=== PATIENT | female | born 1950 | race Caucasian/White ===

== ENCOUNTER 2018-10-10 12:29 | Outpatient (CLI) | payer MEDICARE, BC, OTHER ==
[~2018-10-10 12:29] MED LIST: ASPI81TA30 PO; ATEN-170 PO; CHOL100046 PO; CIME300T PO; ESTR1PAT30 PO; LOSA50TA3 PO; NITR100C6 PO; OMEP40CA37 PO; SIMV20TA PO
== END 2018-10-10 23:59 | disposition home or self-care (01) ==
LOC: VAS 12:29
PROVIDERS: ATTEND Surgery
DX: I70.213 Atherosclerosis of native arteries of extremities with intermittent claudication, bilateral legs (principal); R60.0 Localized edema; I12.9 Hypertensive chronic kidney disease with stage 1 through stage 4 chronic kidney disease, or unspecified chronic kidney disease; N18.3 Chronic kidney disease, stage 3 (moderate); J45.909 Unspecified asthma, uncomplicated; Z90.710 Acquired absence of both cervix and uterus; Z79.82 Long term (current) use of aspirin; Z79.899 Other long term (current) drug therapy
CPT/HCPCS: 93922; 93925; 93970

== ENCOUNTER → 2019-05-20 | Day surgery (SDC) | payer MEDICARE, BC, OTHER ==
[2019-05-20] VITALS (9 sets, daily range): BP systolic 89–153; BP diastolic 36–63
[~2019-05-20] VITALS: Ht 152.4 cm; Wt 70.2 kg
[~2019-05-20] MED LIST changes: +ANTI-DIARRHEAL; +LIDOcaine 1%/PF 5ML 10 MG/ML VIAL ONE; +OMEP40CA13 PO; -OMEP40CA37 PO; +PANT20TA3 PO; +diphenhydrAMINE 50 mg/ml inj ONE; +fentaNYL/PF 50MCG/1 ML 2ML syringe IV PRN; +fentaNYL/PF 50MCG/1 ML 2ML syringe ONE; +heparin 1,000 UNITS/NS 500ml 500 ML ONE; +heparin 1,000unit/ml 10ml vial 10 ML ONE; +iohexol 300mg/ml 100ml inj. ONE; +midazolam 2 mg/2 ml injection IV PRN; +midazolam 2 mg/2 ml injection ONE; +normal saline 1000ml 1,000 ML IV SCH
--- NOTE | 2019-05-20 07:30 | NUR ---
PT NS IV FLUID STARTED AT 0730.
[2019-05-20 08:03] LABS: BASOPHILS % (AUTO) 0.6 % (0-1); EOSINOPHILS % (AUTO) 0.4 % (0-6); HEMOGLOBIN 12.6 g/dl (12.0-16.0); LYMPHOCYTES # (AUTO) 2.2 X10'3 (1.1-4.8); LYMPHOCYTES % (AUTO) 25.9 % (21-51); MEAN CORPUSCULAR HEMOGLOBIN 31.7 PG (27.0-31.0); MEAN CORPUSCULAR HGB CONC 34.1 g/dL (33.0-36.5); MEAN CORPUSCULAR VOLUME 92.9 FL (78-98); MEAN PLATELET VOLUME 10.3 FL (7.4-10.4); MONOCYTES # (AUTO) 0.8 X10'3 (0-0.9); MONOCYTES % (AUTO) 9.2 % (2-12); NEUTROPHILS # (AUTO) 5.5 X10'3 (1.8-7.7); NEUTROPHILS % (AUTO) 63.9 % (42-75); PLATELET COUNT 174 X10'3 (140-440); RED BLOOD COUNT 3.98 X10'6 (4.20-5.60); RED CELL DISTRIBUTION WIDTH 14.4 % (11.5-14.5); WHITE BLOOD COUNT 8.6 X10'3 (4.5-11.0)
[2019-05-20 08:07] LABS: ALBUMIN 3.5 G/DL (3.4-5.0); ANION GAP 7 (8-16); BLOOD UREA NITROGEN 17 MG/DL (7-18); BUN/CREATININE RATIO 9.1 (6.6-38.0); CALCIUM 8.9 MG/DL (8.5-10.1); CHLORIDE 108 MMOL/L (99-107); CREATININE 1.87 MG/DL (0.40-0.90); GLUCOSE 92 MG/DL (70-104); POTASSIUM 4.1 MMOL/L (3.5-5.1); SODIUM 143 MMOL/L (135-145); TOTAL CARBON DIOXIDE 27.6 MMOL/L (24-32); eGFR 27 ML/MIN
== END | disposition home or self-care (01) ==
LOC: SSTAY O 06:32
PROVIDERS: ATTEND Radiology Vascular & Interventional Radiology
DX: E13.51 Other specified diabetes mellitus with diabetic peripheral angiopathy without gangrene (principal); J45.909 Unspecified asthma, uncomplicated; Z90.49 Acquired absence of other specified parts of digestive tract; Z98.890 Other specified postprocedural states; Z88.8 Allergy status to other drugs, medicaments and biological substances; Z79.899 Other long term (current) drug therapy; Z79.82 Long term (current) use of aspirin
CPT/HCPCS: 36246; 36415; 75625; 75710; 80048; 85025; 85610; C1760; C1769; C1894; J1200; J1644; J2250; J3010; J7030; Q9967; 36160; 36245; 76937; 99152; 99153; A6213; G0269

== ENCOUNTER 2023-02-25 09:46 | Inpatient (IN) | payer MEDICARE, BC, OTHER ==
[~2023-02-25] VITALS: Ht 152.4 cm; Wt 56.8 kg
[~2023-02-25 09:46] MED LIST changes: -LIDOcaine 1%/PF 5ML 10 MG/ML VIAL ONE; +LOSA-416 PO; -LOSA50TA3 PO; -OMEP40CA13 PO; +PANT20TA18 PO; -PANT20TA3 PO; +SIMV-342 PO; -SIMV20TA PO; -diphenhydrAMINE 50 mg/ml inj ONE; -fentaNYL/PF 50MCG/1 ML 2ML syringe IV PRN; -fentaNYL/PF 50MCG/1 ML 2ML syringe ONE; -heparin 1,000 UNITS/NS 500ml 500 ML ONE; -heparin 1,000unit/ml 10ml vial 10 ML ONE; -iohexol 300mg/ml 100ml inj. ONE; -midazolam 2 mg/2 ml injection IV PRN; -midazolam 2 mg/2 ml injection ONE; -normal saline 1000ml 1,000 ML IV SCH
[2023-02-25] MEDS ORDERED: normal saline 1000ML IV soln IV ONE (11:25)
[2023-02-25] MEDS ORDERED: CefTRIAXone/D5W-Rocephin 1gm 50 ML IV ONE (11:25)
[2023-02-25] MEDS ORDERED: ondansetron/PF 4mg/2ml inj IV ONE (11:25)
[2023-02-25 11:32] LABS: BASOPHILS % (AUTO) 0.3 % (0-1); EOSINOPHILS % (AUTO) 0 % (0-6); HEMATOCRIT 35.3 % (35.0-45.0); HEMOGLOBIN 11.8 g/dl (12.0-16.0); LYMPHOCYTES # (AUTO) 0.3 X10'3 (1.1-4.8); LYMPHOCYTES % (AUTO) 2.2 % (21-51); MEAN CORPUSCULAR HEMOGLOBIN 30.2 PG (27.0-31.0); MEAN CORPUSCULAR HGB CONC 33.5 g/dL (33.0-36.5); MEAN CORPUSCULAR VOLUME 90.1 FL (78-98); MEAN PLATELET VOLUME 10.9 FL (7.4-10.4); MONOCYTES # (AUTO) 0.8 X10'3 (0-0.9); NEUTROPHILS # (AUTO) 14.3 X10'3 (1.8-7.7); NEUTROPHILS % (AUTO) 92.5 % (42-75); PLATELET COUNT 253 X10'3 (140-440); RED BLOOD COUNT 3.91 X10'6 (4.20-5.60); RED CELL DISTRIBUTION WIDTH 14.9 % (11.5-14.5); WHITE BLOOD COUNT 15.5 X10'3 (4.5-11.0)
[2023-02-25 11:46] LABS: ALANINE AMINOTRANSFERASE 60 U/L (12-78); ALBUMIN 2.5 G/DL (3.4-5.0); ALBUMIN/GLOBULIN RATIO 0.6 (1.1-1.5); ALKALINE PHOSPHATASE 94 IU/L (46-116); ANION GAP 10 (8-16); ASPARTATE AMINO TRANSFERASE 60 U/L (10-37); BILIRUBIN,TOTAL 0.2 MG/DL (0.1-1.0); BLOOD UREA NITROGEN 64 MG/DL (7-18); BUN/CREATININE RATIO 31.1 (10.0-20.0); CALCIUM 8.8 MG/DL (8.5-10.1); CHLORIDE 106 MMOL/L (99-107); CREATININE 2.06 MG/DL (0.40-0.90); GLUCOSE 258 MG/DL (70-104); POTASSIUM 3.5 MMOL/L (3.5-5.1); SODIUM 141 MMOL/L (135-145); TOTAL CARBON DIOXIDE 25.5 MMOL/L (24-32); eGFR 24 ML/MIN
--- NOTE | 2023-02-25 11:51 | NUR ---
PT TROP 71. RN NOTIFIED PROVIDER MARIAH CURRIE AND TELMA LOZA.
[2023-02-25 12:08] LABS: CLARITY,URINE SLIGHTLY CLOUDY (Clear); COLOR,URINE YELLOW (Yellow); GLUCOSE, URINE 100 mg/dl (Neg); KETONES,URINE NEGATIVE (Neg); LEUKOCYTE ESTERASE ,URINE NEGATIVE (Neg); NITRITES, URINE NEGATIVE (Neg); OCCULT BLOOD,URINE MODERATE (Neg); PROTEIN,URINE >=300 mg/dl (Neg); UROBILINOGEN,URINE 0.2 E.U/dL (0.2-1.0)
[2023-02-25] MEDS ORDERED: cloNIDine 0.1 mg tablet PO ONE (12:10)
[2023-02-25 12:11] LABS: UA COLLECTION TYPE FOLEY CATH
[2023-02-25 12:12] LABS: MUCUS STRANDS FEW /LPF (Neg); SQUAMOUS EPITHELIAL CELL,UR FEW /LPF (FEW); WBC,URINE 0-4 /HPF (0-4)
[2023-02-25 12:13] LABS: AMORPHOUS URATES 1+; BACTERIA,URINE NONE SEEN /HPF (Neg)
[2023-02-25] MEDS ORDERED: losartan 50mg tablet PO STA (13:22)
[2023-02-25] MEDS ORDERED: amLODIPine 5mg tablet PO ONE ×2 (13:25→23:40)
[2023-02-25 13:32] LABS: ABG BASE EXCESS -3.1 mmol/L (-2.0-2.0); ABG HCO3 20.3 mmol/L (22.0-26.0); ABG OXYGEN SATURATION 88.8 % (94-97); ABG PCO2 (T) 31.1 mmHg (32.0-45.0); ABG PO2 (T) 57.9 mmHg (75.0-100.0); ALLEN'S TEST POSITIVE; FCOHb 0.2 % (0.0-3.9); FMetHb 0.3 % (0.0-1.5); FO2Hb 88.4 % (94-97); TOTAL HEMOGLOBIN 12.1 G/dl (12.0-16.0)
[2023-02-25] MEDS ORDERED: piperacillin/tazo 3.375gm/50ml 50 ML IV ONE (13:35)
--- NOTE | 2023-02-25 14:53 | NUR ---
LAB REPORTED TROPONIN 91. RN NOTIFIED WAN LOZA AND SHE WILL NOTIFY PROVIDER.
[2023-02-25] MEDS ORDERED: magnesium Cl slow-release 64mg tablet PO PRN (15:00)
[2023-02-25] MEDS ORDERED: mag hydrox/Alum hydrox/simeth 30ml oral suspension PO PRN (15:00)
[2023-02-25] MEDS ORDERED: acetaminophen 650mg rectal suppository RC PRN (15:00)
[2023-02-25] MEDS ORDERED: potassium Cl 20 mEq SR tablet PO PRN ×2 (15:00)
[2023-02-25] MEDS ORDERED: ondansetron/PF 4mg/2ml inj IV PRN (15:00)
[2023-02-25] MEDS ORDERED: diphenhydrAMINE 25mg capsule PO PRN (15:00)
[2023-02-25] MEDS ORDERED: bisacodyl 10mg suppository rectal RC PRN (15:00)
[2023-02-25] MEDS ORDERED: PERFLUTREN PROTEIN-A MICROSPHR (Optison) 0.22 MG/ML 3ML VIAL IV ONE (15:00)
[2023-02-25] MEDS ORDERED: potassium Cl 40MEQ/1/2NS 520ml 520 ML IV PRN (15:00)
[2023-02-25] MEDS ORDERED: acetaminophen 325mg tablet PO PRN ×2 (15:00)
[2023-02-25] MEDS ORDERED: magnesium hydroxide 30ml (MOM) UD suspension PO PRN (15:00)
[2023-02-25] MEDS ORDERED: magnesium 4gm in 100ml NS 100 ML IV PRN (15:00)
[2023-02-25] MEDS ORDERED: magnesium 2GM in 50ml NS 50 ML IV PRN (15:00)
[2023-02-25 15:26] LABS: D-DIMER 5.93 MG/L FEU (0-0.50); HEMOGLOBIN A1C 6.6 % (4.5-6.2)
[2023-02-25] MEDS ORDERED: vancomycin/NS 1 GM ADD-VANTAGE 250 ML IV PRN (15:35)
[2023-02-25] MEDS ORDERED: vancomycin/NS 1 GM ADD-VANTAGE 250 ML IV ONE (15:35)
[2023-02-25 16:00] VITALS: BP 207/65
--- NOTE | 2023-02-25 16:00 | NUR ---
Patient in room PCU 3024. I have received report from Delaney LOZA and had the opportunity to ask questions and assume patient care. Pt arrived via gurney. Pt is confused. Pt oriented to self. Pt knows she is in a hospital. Per endorsement, pt has been confused x 5 days. Pt lives alone. Pt breathing even and unlabored on continuous O2 @ 4lpm. Pt unable to provide hx. Pt v/s BP 207/65 HR 106 RR 16 SPO2 94% on 4LPM, FLACC 0/10. Pt has a field start PIV to right dorsal hand. Telebox started. RN will follow up with PRN Hydralazine. Addendum: 02/25/23 at 1703 by Reggie MYERSN Amended: Links added.
[2023-02-25] MEDS: hydrALAZINE 20mg/ml inj. IV PRN ×2 (16:21→22:46)
[2023-02-25] MEDS: normal saline 1000ml 1,000 ML IV SCH (16:30)
[2023-02-25] MEDS: piperacillin/tazo 3.375gm/50ml 50 ML IV SCH (16:46)
[2023-02-25] MEDS ORDERED: LEVO75TA7 PO (17:10)
[2023-02-25] MEDS ORDERED: CLON0.2T PO (17:10)
[2023-02-25] MEDS ORDERED: ATOR-2 PO (17:10)
[2023-02-25] MEDS ORDERED: OMEP20CA16 PO (17:10)
[2023-02-25] MEDS ORDERED: LOSA100T58 PO (17:10)
[2023-02-25] MEDS ORDERED: DAPA5TAB PO (17:10)
[2023-02-25] MEDS ORDERED: SIME125T62 PO (17:10)
[2023-02-25] MEDS ORDERED: ALBU18HF2 PO (17:10)
[2023-02-25] MEDS ORDERED: ESTR1TAB28 PO (17:10)
[2023-02-25] MEDS ORDERED: OMEP40CA21 PO (17:10)
[2023-02-25] MEDS ORDERED: AMLO5TAB16 PO (17:10)
[2023-02-25] MEDS ORDERED: ERGO500093 PO (17:10)
[2023-02-25] MEDS ORDERED: DIPH1TAB29 PO (17:10)
--- NOTE | 2023-02-25 17:40 | NUR ---
Paged. Page Accepted Message: [id number] Burns. Most recent troponin 100 @ 5816. Today's troponin readings are 71-88-9. Reggie Domínguez LVN Transaction number: [id number]
[2023-02-25] MEDS ORDERED: heparin 10,000 units/1 ML INJ IV ONE (17:45)
--- NOTE | 2023-02-25 17:58 | NUR ---
Pt had multiple episodes of low blood pressure. Pt received 2 x 500 bolus of Normal Saline. Total NS administered = 1000ml. Pt tolerated IVF well. No maintenance IVF. MD adjusted medications. Pt refused lunch. Pt BGM 102-98-102. Pt consumed 600ml out of 1500ml fluid restriction. Pt is incontinent of urine. Addendum: 02/25/23 at 1802 by Reggie Roman LVN, LVN wrong pt.
[2023-02-25 18:00] VITALS: BP 129/66
[2023-02-25] MEDS ORDERED: simethicone 125mg capsule PO PRN (18:05)
[2023-02-25] MEDS ORDERED: albuterol 2.5 MG/3 ML nebule NEB PRN (18:05)
[2023-02-25] MEDS ORDERED: diphenoxylate/atropine tablet (Lomotil) PO PRN (18:05)
[2023-02-25] MEDS ORDERED: dextrose 50%-water 50ml dispensing syringe IV PRN ×2 (18:10)
[2023-02-25] MEDS ORDERED: MESSAGE TO PHARMACY PO ONE (18:10)
[2023-02-25] MEDS ORDERED: glucagon, human recombinant 1mg kit SUBCUT PRN (18:10)
[2023-02-25] MEDS ORDERED: DEXTROSE 15 GM of carb/4 tabs (each vial/BOTTLE has 4 tablets) PO PRN ×2 (18:10)
--- NOTE | 2023-02-25 18:30 | NUR ---
Patient in room PCU 3024. I have received report from Reggie YOUNG and had the opportunity to ask questions and assume patient care.
--- NOTE | 2023-02-25 18:36 | NUR ---
Problems reprioritized. Patient report given, questions answered & plan of care reviewed with Priscilla LOZA.
--- NOTE | 2023-02-25 18:45 | NUR ---
Patient in room PCU 3024. I have received report from SADIA LOZA and had the opportunity to ask questions and assume patient care.
--- NOTE | 2023-02-25 18:47 | NUR ---
Patient in room PCU 3024. I have received report from KALIN YOUNG and had the opportunity to ask questions and assume patient care.
[2023-02-25 19:50] VITALS: BP 185/61
[2023-02-25] MEDS: K and/or MAG REPLACEMENT MC SCH (20:00)
[2023-02-25] MEDS: heparin, porcine 5000 units/ml vial SQ SCH (20:00)
[2023-02-25 20:08] LABS: APTT 26 SECONDS (22-32)
[2023-02-25] MEDS: heparin 25,000 UNIT/250ml bag 250 ML IV PRN (20:32)
--- NOTE | 2023-02-25 20:45 | NUR ---
PAGED DR. MANDEL AND CALLED BACK WAS INFORMED OF CRITICAL TROPONIN OF 97 WHICH IS DOWN FROM PREVIOUS RESULT OF 100 NO NEW ORDERS MADE SAID TO CONTINUE HEPARIN DRIP ORDERED.
[2023-02-25 21:00] VITALS: BP 135/76
[2023-02-25] MEDS: docusate sod 100mg capsule PO SCH (21:52)
[2023-02-25] MEDS: lactobacillus rhamnosus 10,000 MMU CELLS/CAPSULE PO SCH (21:52)
[2023-02-25] MEDS: pantoprazole 40mg Tablet.DR PO SCH (21:53)
[2023-02-25] MEDS: cloNIDine 0.1 mg tablet PO SCH (21:58)
[2023-02-25 22:00] VITALS: BP 187/73
[2023-02-25] MEDS: insulin glargine (Lantus) pen - multi-dose SQ SCH (22:32)
--- NOTE | 2023-02-25 23:30 | NUR ---
PAGED DR. MANDEL AND CALLED BACK WAS INFORMED ABOUT PATIENT'S HIGH BLOOD PRESSURE OF 183/79 EVEN AFTER HYDRALAZINE AND HR UP TO 140'S WITH ORDER WITH ORDER TO GIVE LABETALOL AND AMLODIPINE.
[2023-02-25] MEDS ORDERED: labetalol 100mg tablet PO SCH (23:40)
[2023-02-26] VITALS (19 sets, daily range): BP systolic 105–173; BP diastolic 57–76
[2023-02-26] MEDS: piperacillin/tazo 3.375gm/50ml 50 ML IV SCH ×3 (00:28→16:22)
[2023-02-26] MEDS: normal saline 1000ml 1,000 ML IV SCH ×2 (01:00→11:00)
--- NOTE | 2023-02-26 02:00 | NUR ---
Patient in room PCU 3024. I have received report from Bharati LOZA and had the opportunity to ask questions and assume patient care.
--- NOTE | 2023-02-26 02:05 | NUR ---
PAGEHien MANDEL AND WAS INFORMED OF PATIENT'S HEART RATE UP TO 160'S TO 170'S BUT BLOOD PRESSURE IS DOWN TO 113/62 WITH ORDER TO START WITH AMIODARONE DRIP.
[2023-02-26] MEDS ORDERED: amiodarone 150mg/dext, iso-os 100 ML IV ONE (02:25)
[2023-02-26] MEDS: VANCOMYCIN LEVEL IV SCH (02:30)
--- NOTE | 2023-02-26 02:30 | NUR ---
TOOK CHARGE OF THE PT SHE WAS TACHY @>160 AND NEEDED AMEO DRIP. STARTED AMIODARONE DRIP PER PROTOCOL. WILL CONTINUE MONITORING
--- NOTE | 2023-02-26 02:45 | NUR ---
PATIENT CARE TRANSFER TO A TELE NURSE, PATIENT REPORT GIVEN QUESTIONS ANSWERED AND PLAN OF CARE REVIEWED WITH NETTE LOZA.
[2023-02-26] MEDS: amiodarone/D5 360MG/200ML BAG 200 ML IV SCH ×6 (03:45→21:23)
[2023-02-26 03:49] LABS: ALANINE AMINOTRANSFERASE 44 U/L (12-78); ALBUMIN 1.9 G/DL (3.4-5.0); ALBUMIN/GLOBULIN RATIO 0.5 (1.1-1.5); ALKALINE PHOSPHATASE 53 IU/L (46-116); ANION GAP 10 (8-16); ASPARTATE AMINO TRANSFERASE 44 U/L (10-37); BILIRUBIN,TOTAL 0.3 MG/DL (0.1-1.0); BLOOD UREA NITROGEN 71 MG/DL (7-18); BUN/CREATININE RATIO 30.5 (10.0-20.0); CALCIUM 8.2 MG/DL (8.5-10.1); CHLORIDE 113 MMOL/L (99-107); CHOL/HDL RATIO 10.3 (0.00-4.99); CHOLESTEROL 134 MG/DL (0-200); CREATININE 2.33 MG/DL (0.40-0.90); GLUCOSE 258 MG/DL (70-104); HDL CHOLESTEROL 13 MG/DL (35-60); LDL CHOLESTEROL 64 MG/DL (50-100); POTASSIUM 3.4 MMOL/L (3.5-5.1); SODIUM 146 MMOL/L (135-145); TOTAL CARBON DIOXIDE 22.6 MMOL/L (24-32); TOTAL PROTEIN 5.8 G/DL (6.4-8.2); TRIGLYCERIDES 243 MG/DL (20-135); VANCOMYCIN,RANDOM 27.8 UG/ML; eGFR 20 ML/MIN
[2023-02-26 03:53] LABS: PHOSPHORUS 1.2 MG/DL (2.3-4.5)
[2023-02-26 04:01] LABS: BASOPHILS # (AUTO) 0.1 X10'3 (0-0.2); BASOPHILS % (AUTO) 0.4 % (0-1); EOSINOPHILS % (AUTO) 0 % (0-6); HEMATOCRIT 31.4 % (35.0-45.0); HEMOGLOBIN 10.3 g/dl (12.0-16.0); LYMPHOCYTES # (AUTO) 0.4 X10'3 (1.1-4.8); LYMPHOCYTES % (AUTO) 2.6 % (21-51); MEAN CORPUSCULAR HEMOGLOBIN 29.7 PG (27.0-31.0); MEAN CORPUSCULAR HGB CONC 32.8 g/dL (33.0-36.5); MEAN CORPUSCULAR VOLUME 90.6 FL (78-98); MEAN PLATELET VOLUME 11.6 FL (7.4-10.4); MONOCYTES # (AUTO) 0.8 X10'3 (0-0.9); PLATELET COUNT 233 X10'3 (140-440); RED BLOOD COUNT 3.46 X10'6 (4.20-5.60); RED CELL DISTRIBUTION WIDTH 15.7 % (11.5-14.5); WHITE BLOOD COUNT 16.3 X10'3 (4.5-11.0)
[2023-02-26] MEDS: heparin 10,000 units/1 ML INJ IV PRN ×2 (04:14→11:34)
--- NOTE | 2023-02-26 04:34 | NUR ---
PAGED CRITICAL RESULTS TO DR. MANDEL AND SHE ADVISED TO CONTINUE WITH HEPARIN DRIP FOR NOW. Addendum: 02/26/23 at 0435 by Marsha John RN Amended: Links added.
--- NOTE | 2023-02-26 07:00 | NUR ---
Problems reprioritized. Patient report given, questions answered & plan of care reviewed with Edita YOUNG. Addendum: 02/26/23 at 0805 by Marsha John RN Problems reprioritized. Patient report given, questions answered & plan of care reviewed with Aleksandr BOWERS
[2023-02-26 07:02] LABS: PLATELET ESTIMATE NORMAL
[2023-02-26 07:04] LABS: BURR CELLS FEW; TEAR DROP CELLS FEW
[2023-02-26] MEDS: heparin, porcine 5000 units/ml vial SQ SCH ×2 (08:00→20:00)
[2023-02-26] MEDS: K and/or MAG REPLACEMENT MC SCH ×2 (08:00→20:00)
[2023-02-26] MEDS: lactobacillus rhamnosus 10,000 MMU CELLS/CAPSULE PO SCH ×2 (08:00→20:00)
[2023-02-26] MEDS ORDERED: estradiol 1mg tablet PO SCH (08:00)
[2023-02-26] MEDS ORDERED: levoTHYROXINE 75mcg tablet PO SCH (08:00)
[2023-02-26] MEDS ORDERED: diltiazem 5mg/ml 5ml inj. IV ONE (08:55)
[2023-02-26] MEDS: pantoprazole 40mg Tablet.DR PO SCH ×2 (09:18→20:00)
[2023-02-26] MEDS: atorvastatin 20mg tablet PO SCH (09:18)
[2023-02-26] MEDS: amLODIPine 5mg tablet PO SCH (09:19)
[2023-02-26] MEDS: docusate sod 100mg capsule PO SCH ×2 (09:20→20:00)
[2023-02-26] MEDS: losartan 50mg tablet PO SCH (09:20)
[2023-02-26] MEDS: cloNIDine 0.1 mg tablet PO SCH ×3 (09:20→21:00)
[2023-02-26] MEDS: insulin Lispro (HumaLOG) vial - multi-dose SQ SCH ×2 (09:38→13:12)
[2023-02-26] MEDS ORDERED: potassium phosphate inj 30 MMOL in normal saline 250ml IV soln 250 ML IV ONE (13:30)
[2023-02-26] MEDS: potassium CL 20mEq in D5-1/2NS 1,000 ML IV SCH (13:30)
--- NOTE | 2023-02-26 18:00 | NUR ---
Patient in room PCU 3024. I have received report from Aleksandr LOZA and had the opportunity to ask questions and assume patient care.
[2023-02-26] MEDS: hydrALAZINE 20mg/ml inj. IV PRN (20:02)
[2023-02-26] MEDS: insulin glargine (Lantus) pen - multi-dose SQ SCH (21:00)
[2023-02-26] MEDS: heparin 25,000 UNIT/250ml bag 250 ML IV PRN (22:44)
[2023-02-26] MEDS: labetalol 100mg tablet PO SCH (23:25)
[2023-02-26 23:34] LABS: ABG BASE EXCESS -4.8 mmol/L (-2.0-2.0); ABG HCO3 18.2 mmol/L (22.0-26.0); ABG OXYGEN SATURATION 91.6 % (94-97); ABG PCO2 (T) 26.4 mmHg (32.0-45.0); ABG PO2 (T) 65.9 mmHg (75.0-100.0); ALLEN'S TEST POSITIVE; FCOHb 0.3 % (0.0-3.9); FLOW 5 L/min; FMetHb 0.3 % (0.0-1.5); FO2Hb 91.1 % (94-97); PATIENT TEMPERATURE 37.3; TOTAL HEMOGLOBIN 8.4 G/dl (12.0-16.0)
[2023-02-27] VITALS (14 sets, daily range): BP systolic 130–161; BP diastolic 34–64
[2023-02-27] MEDS ORDERED: LORazepam 2 mg/ml vial IV ONE (00:30)
[2023-02-27] MEDS: levoFLOXACIN-Levaquin 500mg/D5 100 ML IV SCH ×2 (02:25→09:51)
[2023-02-27] MEDS: VANCOMYCIN LEVEL IV SCH ×2 (03:00→05:02)
[2023-02-27 03:05] LABS: URINE AMPHETAMINE SCREEN NEGATIVE (Neg); URINE BARBITUATE SCREEN NEGATIVE (Neg); URINE BENZODIAZEPINES SCREEN POSITIVE (Neg); URINE CANNABINOID SCREEN NEGATIVE (Neg); URINE COCAINE SCREEN NEGATIVE (Neg); URINE METHADONE SCREEN NEGATIVE (Neg); URINE OPIATE SCREEN NEGATIVE (Neg); URINE PHENCYCLIDINE SCREEN NEGATIVE (Neg)
[2023-02-27 03:11] LABS: CLARITY,URINE SLIGHTLY CLOUDY (Clear); COLOR,URINE YELLOW (Yellow); GLUCOSE, URINE NEGATIVE (Neg); KETONES,URINE TRACE mg/dl (Neg); LEUKOCYTE ESTERASE ,URINE NEGATIVE (Neg); NITRITES, URINE NEGATIVE (Neg); OCCULT BLOOD,URINE SMALL (Neg); PH,URINE 5.5 (4.8-8.0); PROTEIN,URINE 100 mg/dl (Neg); UROBILINOGEN,URINE 0.2 E.U/dL (0.2-1.0)
[2023-02-27 03:13] LABS: UA COLLECTION TYPE FOLEY CATH
[2023-02-27 03:17] LABS: AMORPHOUS URATES 2+
[2023-02-27 03:18] LABS: SQUAMOUS EPITHELIAL CELL,UR FEW /LPF (FEW)
[2023-02-27 03:38] LABS: BACTERIA,URINE NONE SEEN /HPF (Neg); WBC,URINE 0-4 /HPF (0-4)
--- NOTE | 2023-02-27 04:13 | NUR ---
patient has resp have been between 35-40 off and on. I had md come to bedside. ordered a repeat ABG. gave results to md. we gave patient 1x dose of 0.5mg ativan, which seemed to help patient. patient was able to relax and sleep. patient mumbles and does not follow commonds. I restarted heparin drip at 2245pm. md changed antibotic to leveaquin. i gave patient a tylenol suppository for fever 100.6. patient is not able to swallow. I did not give any po medication tonight. sent urine sample from [facility]. patient does have vq scan ordered for am. patient has amidorone drip, heparin drip. phos/k pharm. makes.
[2023-02-27] MEDS: amiodarone/D5 360MG/200ML BAG 200 ML IV SCH ×2 (04:52→09:45)
--- NOTE | 2023-02-27 06:30 | NUR ---
WHEN RECEIVING BEDSIDE REPORT, CONCERNS WERE RAISED ABOUT PTS UNSTABLE STATUS IN THE PRESENCE OF CRITICAL LABS THAT WERE PHONED TO NURSING THIS MORNING. IMMEDIATELY PAGED MD, SEE BELOW FOR MESSAGE. IT WAS THEN DETERMINED THAT WAITING FOR MD TO RESPOND TO PAGE WAS NOT APPLICABLE AND RAPID RESPONSE WAS THEN CALLED. CELESTINA FROM ICU ARRIVED, ASSESSED AND CALLED DR MONTES WHO THEN ORDERED PATIENT TO GET TRANSFERRED TO THE ICU NOW. MIRYAM RN CALLED REPORT TO DENI LOZA IN THE ICU AND PT LEFT VIA BED TO [id number]: ROOM [id number] - [place] - PT WITH CRITICAL HGB/HCT 6.8/20.8 - TURNED OFF HEPARIN GTT - BP 145/55 RR-28 5L-96% 87HR - CONTINUES TO HAVE ALOC AND DIFFICULTY SPEAKING. I AM CONSIDERING A RAPID RESPONSE. PLEASE ADVISE RADHA
[2023-02-27 06:42] LABS: ALANINE AMINOTRANSFERASE 45 U/L (12-78); ALBUMIN 1.3 G/DL (3.4-5.0); ALBUMIN/GLOBULIN RATIO 0.4 (1.1-1.5); ALKALINE PHOSPHATASE 39 IU/L (46-116); ANION GAP 15 (8-16); ASPARTATE AMINO TRANSFERASE 73 U/L (10-37); BILIRUBIN,TOTAL 0.2 MG/DL (0.1-1.0); BLOOD UREA NITROGEN 122 MG/DL (7-18); BUN/CREATININE RATIO 33.9 (10.0-20.0); CALCIUM 7.8 MG/DL (8.5-10.1); CHLORIDE 112 MMOL/L (99-107); GLUCOSE 279 MG/DL (70-104); MAGNESIUM 1.9 MG/DL (1.5-2.4); PHOSPHORUS 3.2 MG/DL (2.3-4.5); POTASSIUM 3.5 MMOL/L (3.5-5.1); SODIUM 146 MMOL/L (135-145); TOTAL CARBON DIOXIDE 19.5 MMOL/L (24-32); TOTAL PROTEIN 4.8 G/DL (6.4-8.2); VANCOMYCIN,RANDOM 11.2 UG/ML; eGFR 12 ML/MIN
[2023-02-27 07:04] LABS: BASOPHILS # (AUTO) 0.1 X10'3 (0-0.2); BASOPHILS % (AUTO) 0.4 % (0-1); EOSINOPHILS % (AUTO) 0.3 % (0-6); LYMPHOCYTES # (AUTO) 0.4 X10'3 (1.1-4.8); LYMPHOCYTES % (AUTO) 3.5 % (21-51); MEAN CORPUSCULAR HEMOGLOBIN 29.3 PG (27.0-31.0); MEAN CORPUSCULAR HGB CONC 32.5 g/dL (33.0-36.5); MEAN PLATELET VOLUME 10.7 FL (7.4-10.4); MONOCYTES % (AUTO) 8.4 % (2-12); NEUTROPHILS # (AUTO) 10.7 X10'3 (1.8-7.7); NEUTROPHILS % (AUTO) 87.4 % (42-75); PLATELET COUNT 254 X10'3 (140-440); RED BLOOD COUNT 2.31 X10'6 (4.20-5.60); RED CELL DISTRIBUTION WIDTH 15.9 % (11.5-14.5); WHITE BLOOD COUNT 12.2 X10'3 (4.5-11.0)
[2023-02-27 07:11] LABS: HEMATOCRIT 20.8 % (35.0-45.0); HEMOGLOBIN 6.8 g/dl (12.0-16.0)
[2023-02-27] MEDS ORDERED: levoTHYROXINE 75mcg tablet PO SCH (07:30)
--- NOTE | 2023-02-27 07:34 | NUR ---
patient lab work was coming back abnormal. given report to day nurse and we called a rapid due to bun and creat elevated and hgb dropped to 6.8.
[2023-02-27] MEDS ORDERED: vancomycin/NS 1 GM ADD-VANTAGE 250 ML IV ONE (07:45)
[2023-02-27] MEDS: atorvastatin 20mg tablet PO SCH (08:00)
[2023-02-27] MEDS: amLODIPine 5mg tablet PO SCH (08:00)
[2023-02-27] MEDS: lactobacillus rhamnosus 10,000 MMU CELLS/CAPSULE PO SCH (08:00)
[2023-02-27] MEDS: heparin, porcine 5000 units/ml vial SQ SCH (08:00)
[2023-02-27] MEDS: labetalol 100mg tablet PO SCH (08:00)
[2023-02-27] MEDS: K and/or MAG REPLACEMENT MC SCH (08:00)
[2023-02-27] MEDS: losartan 50mg tablet PO SCH (08:00)
[2023-02-27 08:08] LABS: BURR CELLS 1+; NUCLEATED RED BLOOD CELLS 1 /100WBC (0-0); PLATELET ESTIMATE NORMAL; TOTAL CELLS COUNTED 100
[2023-02-27 08:16] LABS: BASOPHILS % (AUTO) 0.2 % (0-1); EOSINOPHILS % (AUTO) 0.1 % (0-6); LYMPHOCYTES # (AUTO) 0.5 X10'3 (1.1-4.8); MEAN CORPUSCULAR HEMOGLOBIN 29.8 PG (27.0-31.0); MEAN CORPUSCULAR HGB CONC 33.2 g/dL (33.0-36.5); MEAN PLATELET VOLUME 11.2 FL (7.4-10.4); MONOCYTES # (AUTO) 1.1 X10'3 (0-0.9); MONOCYTES % (AUTO) 9.4 % (2-12); NEUTROPHILS # (AUTO) 10.3 X10'3 (1.8-7.7); NEUTROPHILS % (AUTO) 86.3 % (42-75); PLATELET COUNT 259 X10'3 (140-440); RED BLOOD COUNT 2.22 X10'6 (4.20-5.60); RED CELL DISTRIBUTION WIDTH 15.6 % (11.5-14.5)
[2023-02-27 08:21] LABS: ABG BASE EXCESS -5.8 mmol/L (-2.0-2.0); ABG HCO3 18.6 mmol/L (22.0-26.0); ABG OXYGEN SATURATION 93.6 % (94-97); ABG PCO2 (T) 31.6 mmHg (32.0-45.0); ABG PO2 (T) 71.3 mmHg (75.0-100.0); ALLEN'S TEST POSITIVE; FCOHb 0.3 % (0.0-3.9); FLOW 5 L/min; FMetHb 0.3 % (0.0-1.5); TOTAL HEMOGLOBIN 7.5 G/dl (12.0-16.0)
--- NOTE | 2023-02-27 08:22 | NUR ---
pt. to room 2043 from Tele during rapid response. Pt. unable to state name. VSS except increased RR. All 3 PIVS either occluded or out of veins (but taped to skin). Attempting to obtain IV access now.
[2023-02-27 08:23] LABS: HEMOGLOBIN 6.6 g/dl (12.0-16.0)
[2023-02-27 08:30] LABS: ALANINE AMINOTRANSFERASE 45 U/L (12-78); ALBUMIN 1.3 G/DL (3.4-5.0); ALBUMIN/GLOBULIN RATIO 0.4 (1.1-1.5); ALKALINE PHOSPHATASE 38 IU/L (46-116); ANION GAP 14 (8-16); ASPARTATE AMINO TRANSFERASE 76 U/L (10-37); BILIRUBIN,TOTAL 0.2 MG/DL (0.1-1.0); BLOOD UREA NITROGEN 130 MG/DL (7-18); BUN/CREATININE RATIO 33.5 (10.0-20.0); CHLORIDE 115 MMOL/L (99-107); CREATININE 3.88 MG/DL (0.40-0.90); GLUCOSE 176 MG/DL (70-104); POTASSIUM 3.7 MMOL/L (3.5-5.1); SODIUM 150 MMOL/L (135-145); TOTAL CARBON DIOXIDE 20.6 MMOL/L (24-32); TOTAL PROTEIN 4.9 G/DL (6.4-8.2); eGFR 11 ML/MIN
[2023-02-27] MEDS: potassium CL 20mEq in D5-1/2NS 1,000 ML IV SCH (08:45)
[2023-02-27] MEDS ORDERED: pantoprazole 40MG/NS 100ML BAG 100 ML IV SCH (09:05)
[2023-02-27] MEDS ORDERED: normal saline 1000ml 1,000 ML IV SCH (10:20)
[2023-02-27] MEDS ORDERED: normal saline 1000ml 1,000 ML IV ONE (10:20)
--- NOTE | 2023-02-27 10:38 | NUR ---
Dr. Hernández notified of only 25 cc urine since Arreola insertion. Order received for NS bolus and NS @ 150cc hour. PICC RN attempting to obtain access.
--- NOTE | 2023-02-27 10:54 | NUR ---
Initial: Pt admit for sepsis, PNA (possibly aspiration), and metabolic encephalopathy. Per EMR pt s/p rapid response this morning and transferred to ICU. Pt has been on a heart healthy diet and eating poorly, documented with 0% PO intake since admit. Pt s/p BSS this morning with ST recs NPO as pt unsafe for PO d/t cognitive level. Pt to get an NGT in place. No TF consult at this time though will place TF recs below for if expected prolonged NPO status and to require nutrition support. Noted pt with a low Marciano of 12, no documented edema or wounds. No documented BM since admit, PRN bowel care available though unable to take PO at this time. Will continue to follow closely and make recommendations as appropriate. Recommendations: 1) Advance to heart healthy diet as medically indicated if pt able to tolerate PO intake; regular diet if pt with poor PO intake 2) IF unable to advance PO diet, consider NGTF using Vital AF with goal rate of 50 mL/hr. Begin at 20 mL/hr and advance by 30 mL Q8H as tolerated to goal rate. To provide 1200 mL total volume/day, 1440 kcal, 90 g protein, and 973 mL water 3) IF TF, additional water flush per physician; monitor serum Na 4) IF TF, prealbumin q Monday/; daily scaled weights 5) Routine bowel care Addendum: 02/27/23 at [address] Amended: Links added.
--- NOTE | 2023-02-27 11:44 | NUR ---
Bj (POA/ brother) and another brother at bedside talking with pt. Dr. Laird spoke with brothers who decided to change pt's code status to DNR. Dr. Larawe aware. Brothers now discussing Comfort Care as pt. is not wanting NGT, PIV's, CVL etc. Pt. only has one PIV as access now.
--- NOTE | 2023-02-27 12:00 | NUR ---
Family decided to make pt. comfort care. RN notified Drs. Laird and Edgar. Dr. Hernández stated he would place orders in [facility]. NGT dc'd, blood transfusion stopped.
[2023-02-27] MEDS ORDERED: levoTHYROXINE 25mcg tablet PO SCH (12:02)
[2023-02-27] MEDS ORDERED: HYDROmorphone 1 mg/ml syringe IV PRN (12:10)
[2023-02-27] MEDS: HYDROmorphone 1 mg/ml syringe IV PRN ×4 (12:42→23:49)
--- NOTE | 2023-02-27 12:44 | NUR ---
Cardiac consult: Noted patient's code status has been changed to DNR with comfort care. Nutrition therapy education not warranted at this time. Will continue to follow per LOS. Addendum: 02/27/23 at [address] Amended: Links added.
--- NOTE | 2023-02-27 17:28 | NUR ---
Another brother (3rd) came to visit pt. Pt. lying in bed with eyes closed, even and unlabored respirations noted.
--- NOTE | 2023-02-27 18:06 | NUR ---
Problems reprioritized. Patient report given, questions answered & plan of care reviewed with Vanessa LOZA.
--- NOTE | 2023-02-27 18:30 | NUR ---
Patient in room ICU 2043. I have received report from Akosua LOZA and had the opportunity to ask questions and assume patient care..
--- NOTE | 2023-02-28 00:45 | NUR ---
Patient . [facility] Notified.
--- NOTE | 2023-02-28 02:44 | NUR ---
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 Belongings sent home with the brother.
== END 2023-02-28 02:46 | DRG 871 ==
LOC: ER 09:46 → ED HOLD 15:00 → PCU 3S 16:17 → ICU 2S 02-27 07:48
PROVIDERS: ADMIT Family Medicine; ATTEND Family Medicine
PROC: 30233N1 Transfusion of Nonautologous Red Blood Cells into Peripheral Vein, Percutaneous Approach (ICD-10-PCS; principal; 2023-02-27)
DX: A41.9 Sepsis, unspecified organism (principal); G93.41 Metabolic encephalopathy; J69.0 Pneumonitis due to inhalation of food and vomit; I21.A1 Myocardial infarction type 2; D62 Acute posthemorrhagic anemia; E87.3 Alkalosis; E87.0 Hyperosmolality and hypernatremia; N17.9 Acute kidney failure, unspecified; Z51.5 Encounter for palliative care; Z20.822 Contact with and (suspected) exposure to COVID-19; Z66 Do not resuscitate; E87.6 Hypokalemia; E11.22 Type 2 diabetes mellitus with diabetic chronic kidney disease; N18.30 Chronic kidney disease, stage 3 unspecified; I12.9 Hypertensive chronic kidney disease with stage 1 through stage 4 chronic kidney disease, or unspecified chronic kidney disease; E03.9 Hypothyroidism, unspecified; E11.51 Type 2 diabetes mellitus with diabetic peripheral angiopathy without gangrene; E11.42 Type 2 diabetes mellitus with diabetic polyneuropathy; E78.5 Hyperlipidemia, unspecified; E83.39 Other disorders of phosphorus metabolism; I48.91 Unspecified atrial fibrillation; J45.909 Unspecified asthma, uncomplicated; K21.9 Gastro-esophageal reflux disease without esophagitis; R65.20 Severe sepsis without septic shock; Z79.82 Long term (current) use of aspirin; Z90.49 Acquired absence of other specified parts of digestive tract; Z90.710 Acquired absence of both cervix and uterus; Z88.5 Allergy status to narcotic agent; Z79.899 Other long term (current) drug therapy; Z79.890 Hormone replacement therapy
CPT/HCPCS: 36415; 36430; 36600; 70450; 71045; 71250; 74018; 74176; 80053; 80061; 80202; 80305; 81001; 82140; 82803; 82948; 83036; 83605; 83735; 84100; 84145; 84443; 84484; 85007; 85008; 85018; 85025; 85379; 85610; 85730; 86885; 86900; 86901; 86920; 87040; 87081; 87088; 87502; 87503; 87811; 92508; 92616; 93306; 93970; 94799; 99285; A4333; A4615; A6213; A6258; A6449; C1751; C9113; G0378; J0282; J0360; J0696; J1170; J1644; J1815; J1956; J2060; J2405; J2543; J3370; J3480; J3490; J7030; J7040; J7050; P9016